=== PATIENT | male | born 1960 | race African-American/Black ===

== ENCOUNTER → 2019-10-02 | Outpatient (CLI) | payer MEDICAID ==
[~2019-10-02] MED LIST: AMLO10TA80 MT; ASPI-1158 MT; ATOR40TA70 MT; CLOP75TA33 PO; HYDR-4135 MT; METO-539 MT; SIMV-43 MT
== END | disposition home or self-care (01) ==
LOC: LAB 10:29
PROVIDERS: ATTEND Ophthalmology
DX: Z01.818 Encounter for other preprocedural examination (principal); Z11.59 Encounter for screening for other viral diseases
CPT/HCPCS: U0003-CS

== ENCOUNTER → 2019-10-04 | Day surgery (SDC) | payer MEDICAID ==
[~2019-10-04] VITALS: Ht 195.6 cm; Wt 142.9 kg
[~2019-10-04] MED LIST changes: +ACETAMINOPHEN 325MG TABLET PO PRN; -ATOR40TA70 MT; +ATROPINE SULFATE 1MG/10ML SYR IV PRN; -CLOP75TA33 PO; +ONDANSETRON HCL 4MG/2ML INJ IV PRN
[2019-10-04 14:05] LABS: HEMATOCRIT 43.5 % (42.0-52.0); HEMOGLOBIN 15.3 g/dL (14.0-18.0); MEAN CORPUSCULAR HEMOGLOBIN 33.4 pg (28.0-32.0); MEAN CORPUSCULAR VOLUME 94.8 fL (80.0-94.0); PLATELET 194 x1000/uL (130-400); RED BLOOD CELL COUNT 4.59 mill/uL (4.7-6.1); RED CELL DISTRIBUTION WIDTH 13.2 % (11.6-14.6)
== END | disposition home or self-care (01) ==
LOC: CCL 06:15
PROVIDERS: ATTEND Specialist
DX: R94.39 Abnormal result of other cardiovascular function study (principal); I73.9 Peripheral vascular disease, unspecified; I25.10 Atherosclerotic heart disease of native coronary artery without angina pectoris; I51.7 Cardiomegaly; Z79.899 Other long term (current) drug therapy; Z98.890 Other specified postprocedural states
CPT/HCPCS: 36246; 36415; 71045; 75710; 83880; 85027; 93458; 99152; 99153; C1760; C1769; C1887; C1893; G0500

== ENCOUNTER → 2019-10-09 | Outpatient (CLI) | payer OTHER, MEDICAID ==
[~2019-10-09] MED LIST changes: -ACETAMINOPHEN 325MG TABLET PO PRN; +ATOR40TA70 MT; -ATROPINE SULFATE 1MG/10ML SYR IV PRN; +CLOP75TA33 PO; -ONDANSETRON HCL 4MG/2ML INJ IV PRN
== END | disposition home or self-care (01) ==
LOC: LAB 11:35
PROVIDERS: ATTEND Internal Medicine
DX: Z01.818 Encounter for other preprocedural examination (principal); Z11.59 Encounter for screening for other viral diseases
CPT/HCPCS: U0003-CS

== ENCOUNTER 2019-10-11 06:30 | Inpatient (IN) | payer MEDICAID ==
[2019-10-11] VITALS (13 sets, daily range): BP systolic 114–172; BP diastolic 65–112
[~2019-10-11] VITALS: Ht 195.6 cm; Wt 143.0 kg
[~2019-10-11 06:30] MED LIST changes: -CLOP75TA33 PO
[2019-10-11] MEDS ORDERED: LIDOCAINE HCL 1% 20ML VIAL (Pyxis) INJ ONE (08:16)
[2019-10-11] MEDS ORDERED: IODIXANOL 320MG/ML 100 ML BOTTLE IV ONE (08:17)
[2019-10-11] MEDS ORDERED: MIDAZOLAM HCL 2 MG/2 ML VIAL ONE ×2 (08:29→08:56)
[2019-10-11] MEDS ORDERED: FENTANYL CITRATE/PF 50MCG/ML 2ML VIAL ONE (08:30)
[2019-10-11] MEDS ORDERED: IOHEXOL-300 100 ML BOTTLE ONE (09:05)
[2019-10-11] MEDS ORDERED: CLOPIDOGREL 75MG TABLET ONE (10:09)
[2019-10-11] MEDS ORDERED: ASPIRIN 325MG TABLET ONE (10:10)
[2019-10-11] MEDS ORDERED: ACETAMINOPHEN 325MG TABLET PO PRN (10:15)
[2019-10-11] MEDS ORDERED: ONDANSETRON HCL 4MG/2ML INJ IV PRN (10:15)
[2019-10-11] MEDS ORDERED: ATROPINE SULFATE 1MG/10ML SYR IV PRN (10:15)
[2019-10-11] MEDS ORDERED: HEPARIN SODIUM 1,000 UNIT/1ML VIAL IV ONE (13:01)
[2019-10-11] MEDS ORDERED: HYDRALAZINE 20MG/ML VIAL IV PRN (14:30)
[2019-10-11] MEDS: AMLODIPINE 10MG TABLET PO SCH (14:45)
[2019-10-11] MEDS: ISOSORBIDE MONONITRATE 30MG TABLET SR 24HR PO SCH (16:23)
[2019-10-11 19:39] LABS: HEMATOCRIT 40.2 % (42.0-52.0); HEMOGLOBIN 13.8 g/dL (14.0-18.0); MEAN CORPUSCULAR HEMOGLOBIN 32.6 pg (28.0-32.0); MEAN CORPUSCULAR VOLUME 94.8 fL (80.0-94.0); PLATELET 224 x1000/uL (130-400); RED BLOOD CELL COUNT 4.24 mill/uL (4.7-6.1)
[2019-10-11] MEDS ORDERED: ATORVASTATIN CALCIUM 40MG TABLET PO SCH (21:00)
[2019-10-11] MEDS: METOPROLOL TARTRATE 25MG TABLET PO SCH (21:45)
[2019-10-11] MEDS: HYDRALAZINE HCL 50MG TABLET PO SCH (21:45)
[2019-10-12] VITALS (7 sets, daily range): BP systolic 101–149; BP diastolic 38–87
[2019-10-12] MEDS: HYDRALAZINE HCL 50MG TABLET PO SCH (05:24)
[2019-10-12 07:12] LABS: BASOPHILS % 0.5 % (0.0-2.0); EOSINOPHILS % 1.5 % (0.0-5.0); HEMATOCRIT. 38.1 % (42.0-52.0); HEMOGLOBIN. 13.2 g/dL (14.0-18.0); LYMPHOCYTES % 17.9 % (20.0-50.0); MEAN PLATELET VOLUME 7.9 fl (7.4-10.4); MONOCYTES % 9.9 % (2.0-8.0); NEUTROPHILS % 70.2 % (40.0-76.0); PLATELET 216 x1000/uL (130-400); RED CELL DISTRIBUTION WIDTH 13.1 % (11.6-14.6)
[2019-10-12 07:14] LABS: CHLORIDE 107 mEq/L (98-107)
[2019-10-12] MEDS: ISOSORBIDE MONONITRATE 30MG TABLET SR 24HR PO SCH (08:40)
[2019-10-12] MEDS: AMLODIPINE 10MG TABLET PO SCH (08:41)
[2019-10-12] MEDS: METOPROLOL TARTRATE 25MG TABLET PO SCH (08:41)
[2019-10-12] MEDS ORDERED: ASPIRIN 325MG TABLET PO SCH (09:00)
[2019-10-12] MEDS ORDERED: CLOPIDOGREL 75MG TABLET PO SCH (09:00)
[2019-10-12] MEDS ORDERED: POTASSIUM CHLORIDE 20MEQ TABLET SR PO NR (10:17)
[2019-10-12] MEDS ORDERED: CLOP75TA33 PO (11:29)
== END 2019-10-12 11:50 | disposition home or self-care (01) | DRG 181 ==
LOC: CCL 06:30 → 3WST 06:31
PROVIDERS: ADMIT Specialist; ATTEND Specialist
PROC: 047L3EZ Dilation of Left Femoral Artery with Two Intraluminal Devices, Percutaneous Approach (ICD-10-PCS; principal; 2019-10-11)
PROC: B2121ZZ Fluoroscopy of Single Coronary Artery Bypass Graft using Low Osmolar Contrast (ICD-10-PCS; 2019-10-11)
DX: I70.212 Atherosclerosis of native arteries of extremities with intermittent claudication, left leg (principal); E66.01 Morbid (severe) obesity due to excess calories; E78.5 Hyperlipidemia, unspecified; I70.202 Unspecified atherosclerosis of native arteries of extremities, left leg; I10 Essential (primary) hypertension; I25.10 Atherosclerotic heart disease of native coronary artery without angina pectoris; I77.1 Stricture of artery; I25.2 Old myocardial infarction; Z87.891 Personal history of nicotine dependence; Z68.37 Body mass index [BMI] 37.0-37.9, adult; Z79.899 Other long term (current) drug therapy
CPT/HCPCS: 36415; 37226; 75710; 80048; 85025; 85027; C1714; C1725; C1760; C1769; C1876; C1887; C1893; C1894; J0360; J1644; J2250; J3010; J3490; Q9967